=== PATIENT | female | born 1970 | race Caucasian/White ===

== ENCOUNTER → 2023-06-17 11:11 | Outpatient (BNVA) | payer MEDICARE, MEDICAID, SELFPAY | PROVIDERS: PCP Internal Medicine Hematology & Oncology; Visit Provider Physician Assistant Surgical ==

== ENCOUNTER 2023-07-09 08:01 | Outpatient (AMB) | payer MEDICARE, MEDICAID, SELFPAY ==
--- OUTSIDE RECORDS SUMMARY | 2023-07-09 08:02 | XMS_ITS | Continuity of Care Document ---
Author Name Unknown Organization [facility] Address [address] [place] [address] [place] [address]- Care Team Providers Care Nursery Manager Name Role Phone Not on Staff, PCP Primary Care Physician Unavail able Encounter [facility] Date(s): 06/06/23 - 07/06/[address] [address]- Allergies, Adverse Reactions, Alerts No Known Allergies Medications amphetamine-dextroamphetamine 15 mg oral capsule, extended release 1 capsule = 15 mg, By Mouth, Daily in AM, # 30 capsule, 0 Refills, Maintenance, 05/27/23 15:40:00 EDT, ER Capsule, [facility] #[id number], Partial fill upon patient request if the prescription is for a schedule II opioid drug., 1 capsule By Mouth... Start Date: 05/27/23 Status: Ordered gabapentin 100 mg oral capsule 300 mg, 3, capsule, By Mouth, 3 times a day, # 270 capsule, Refills 2, Tot. Refills 2, Maintenance,11/04/22 10:06:00 EST, Route to Pharmacy Electronically, [facility] #[id number], Partial fill upon patient request if the prescription is for a sc... Start Date: 11/04/22 Status: Ordered metFORMIN 500 mg oral tablet 1 each = 500 mg, By Mouth, Daily, # 30 capsule, 0 Refills, Maintenance, 07/29/22 15:47:00 EDT, Tablet, [facility] #[id number], Partial fill upon patient request if the prescription is for a schedule II opioid drug., 171, cm, 07/29/22 8:40:00 EDT,... Start Date: 07/29/22 Stop Date: 08/28/22 Status: Ordered Nicotine 2 mg gum = 2 mg, Chew, Every 15 minutes, PRN Other, cigarette craving, # 40 each, 0 Refills, Maintenance, 07/29/22 15:54:00 EDT, Gum, [facility] #[id number], Partial fill upon patient request if the prescription is for a schedule II opioid drug., 171, cm,... Start Date: 07/29/22 Status: Ordered nicotine 21 mg/24 hr transdermal film, extended release 1 patch, Topically, Daily, # 30 patch, 0 Refills, Maintenance, 07/29/22 15:53:00 EDT, Patch, [facility] #[id number], Partial fill upon patient request if the prescription is for a schedule II opioid drug., 1 patch Topically Daily, 171, cm, ... Start Date: 07/29/22 Status: Ordered PROzac 20 mg oral capsule 80 mg, 4, capsule, By Mouth, Daily, # 120 capsule, Refills 3, Tot. Refills 3, Maintenance, 11/04/2210:05:00 EST, Route to Pharmacy Electronically, [facility] #[id number], Partial fill upon patient request if the prescription is for a schedule II... Start Date: 11/04/22 Stop Date: 03/04/23 Status: Ordered Suboxone 2 mg-0.5 mg sublingual film 1 film, Sublingual, Daily, dissolve under the tongue Take with 8 mg strip for total of 10 mg daily,# 8 film, 0 Refills, Maintenance, 07/30/22 10:09:00 EDT, [facility] #[id number], Partialfill upon patient request if the prescription is... Start Date: 07/30/22 Status: Ordered Suboxone 8 mg-2 mg sublingual film 1 film, Sublingual, Daily, dissolve under the tongue, # 30 film, 0 Refills, Maintenance, 07/30/22 10:08:00 EDT, Film, [facility] #[id number], Partial fill upon patient request if the prescription is for a schedule II opioid drug., 1 film Sublingu... Start Date: 07/30/22 Status: Ordered traZODone 50 mg oral tablet 50 mg, 1, tablet, By Mouth, Daily at bedtime, PRN, may give additional dose x 1 if first dose ineffective, # 30 tablet, Refills 3, Tot. Refills 3, Maintenance, Sleep, 11/04/22 10:06:00 EST, Route to Pharmacy Electronically, [facility] #[id number]... Start Date: 11/04/22 Status: Ordered ZyPREXA 10 mg oral tablet 10 mg, 1, tablet, By Mouth, Daily at bedtime, # 30 tablet, Refills 2, Tot. Refills 2, Maintenance, 11/04/22 10:06:00 EST, Route to Pharmacy Electronically, [facility] #[id number], Partial fill upon patient request if the prescription is for a ze... Start Date: 11/04/22 Status: Ordered Problem List Condition Confirmation Course Effective Dates Status Health St [facility] Informant Severe obesity Confirmed Active Social History Social History Type Response Smoking Status Never (less than 100 in lifetime) entered on: 07/22/22 Sex Patient Care team information Care Team Personnel Name: Elle Zamora RN Position: [facility] RN Member Role: Primary Care Nurse Name: Tomeka Isabel [place] Position: [facility] RN Member Role: Primary Care Nurse Name: Josette Barnett RN Position: [facility] RN Member Role: Primary Care Nurse Name: Gaviota Garcia RN Position: [facility] ED RN W/OE and Tasks Member Role: Primary Care Nurse Name: Not on Staff, PCP Position: [facility] Physician (General Medicine) Member Role: PCP Care Team Related Persons Name: EVITA FULLER Address: [address] [address]
--- OUTSIDE RECORDS SUMMARY | 2023-07-09 08:02 | XMS_ITS | Continuity of Care Document ---
Author Name Unknown Organization [facility] Address [address] [place] [address]- Care Team Providers Care Review Scheduling Coordinator Name Role Phone Not on Staff, PCP Primary Care Physician Unavail able Encounter [facility] Date(s): 03/12/21 - 04/11/21 [facility] [address] [place], [place] [address] Allergies, Adverse Reactions, Alerts Substance Reaction Severity Status NKA Active
--- OUTSIDE RECORDS SUMMARY | 2023-07-09 08:02 | XMS_ITS | Continuity of Care Document ---
Author Name Unknown Organization [facility] Address [address] [place] [address]- Care Team Providers Care Executive Assistant To General Counsel Name Role Phone Not on Staff, PCP Primary Care Physician Unavail able Encounter [facility] Date(s): 04/24/23 - 05/24/[address] [address]- Allergies, Adverse Reactions, Alerts No Known Allergies Medications amphetamine-dextroamphetamine 15 mg oral capsule, extended release 1 capsule = 15 mg, By Mouth, Daily in AM, # 30 capsule, 0 Refills, Maintenance, 04/28/23 11:02:00 EDT, ER Capsule, [facility] #[id number], Partial fill upon patient request if the prescription is for a schedule II opioid drug., 1 capsule By Mouth... Start Date: 04/28/23 Status: Ordered gabapentin 100 mg oral capsule 300 mg, 3, capsule, By Mouth, 3 times a day, # 270 capsule, Refills 2, Tot. Refills 2, Maintenance,11/04/22 10:06:00 EST, Route to Pharmacy Electronically, [facility] #[id number], Partial fill upon patient request if the prescription is for a sc... Start Date: 11/04/22 Status: Ordered metFORMIN 500 mg oral tablet 1 each = 500 mg, By Mouth, Daily, # 30 capsule, 0 Refills, Maintenance, 07/29/22 15:47:00 EDT, Tablet, [facility] #[id number], Partial fill upon patient request if the prescription is for a schedule II opioid drug., 171, cm, 07/29/22 8:40:00 EDT,... Start Date: 07/29/22 Stop Date: 08/28/22 Status: Ordered Nicotine 2 mg gum = 2 mg, Chew, Every 15 minutes, PRN Other, cigarette craving, # 40 each, 0 Refills, Maintenance, 07/29/22 15:54:00 EDT, Gum, [facility] #[id number], Partial fill upon patient request if the prescription is for a schedule II opioid drug., 171, cm,... Start Date: 07/29/22 Status: Ordered nicotine 21 mg/24 hr transdermal film, extended release 1 patch, Topically, Daily, # 30 patch, 0 Refills, Maintenance, 07/29/22 15:53:00 EDT, Patch, [facility] #[id number], Partial fill upon patient request if the prescription is for a schedule II opioid drug., 1 patch Topically Daily, 171, cm, ... Start Date: 07/29/22 Status: Ordered PROzac 20 mg oral capsule 80 mg, 4, capsule, By Mouth, Daily, # 120 capsule, Refills 3, Tot. Refills 3, Maintenance, 11/04/2210:05:00 EST, Route to Pharmacy Electronically, [facility] #[id number], Partial fill upon patient request if the prescription is for a schedule II... Start Date: 11/04/22 Stop Date: 03/04/23 Status: Ordered Suboxone 2 mg-0.5 mg sublingual film 1 film, Sublingual, Daily, dissolve under the tongue Take with 8 mg strip for total of 10 mg daily,# 8 film, 0 Refills, Maintenance, 07/30/22 10:09:00 EDT, Film, [facility] #[id number], Partialfill upon patient request if the prescription is... Start Date: 07/30/22 Status: Ordered Suboxone 8 mg-2 mg sublingual film 1 film, Sublingual, Daily, dissolve under the tongue, # 30 film, 0 Refills, Maintenance, 07/30/22 10:08:00 EDT, Film, [facility] #[id number], Partial fill upon patient request if the [...] 11/04/22 10:06:00 EST, Route to Pharmacy Electronically, [facility] #[id number]... Start Date: 11/04/22 Status: Ordered ZyPREXA 10 mg oral tablet 10 mg, 1, tablet, By Mouth, Daily at bedtime, # 30 tablet, Refills 2, Tot. Refills 2, Maintenance, 11/04/22 10:06:00 EST, Route to Pharmacy Electronically, [facility] #[id number], Partial fill upon patient request if the prescription is for a ze... Start Date: 11/04/22 Status: Ordered Problem List Condition Confirmation Course Effective Dates Status Health [facility] Informant Obese class II Confirmed Active Social History Social History Type Response Smoking Status Never (less than 100 in lifetime) entered on: 07/22/22 Sex Patient Care team information Care Team Personnel Name: Elle Zamora RN Position: [facility] RN Member Role: Primary Care Nurse Name: Tomeka Isabel [place] Position: [facility] RN Member Role: Primary Care Nurse Name: Josette Barnett RN Position: [facility] RN Member Role: Primary Care Nurse Name: Gaviota Garcia RN Position: [facility] ED RN W/OE and Tasks Member Role: Primary Care Nurse Name: Not on Staff, PCP Position: [facility] Physician (General Medicine) Member Role: PCP Care Team Related Persons Name: EVITA FULLER Address: [place] [address]
--- OUTSIDE RECORDS SUMMARY | 2023-07-09 08:02 | XMS_ITS | Continuity of Care Document ---
Author Name Unknown Organization [facility] Address [address] [place] [address]- Care Team Providers Care Cream Separator Operator Name Role Phone Not on Staff, PCP Primary Care Physician Unavail able Encounter [facility] Date(s): 12/23/22 - 01/22/23 [facility] [address] [address]- Attending Physician: Sarthak Brambila Admitting Physician: Sarthak Brambila Referring Physician: Sarthak Brambila Allergies, Adverse Reactions, Alerts No Known Allergies Medications amphetamine-dextroamphetamine 15 mg oral capsule, extended release 1 capsule = 15 mg, By Mouth, Daily in AM, # 30 capsule, 0 Refills, Maintenance, 01/21/23 17:43:00 EST, ER Capsule, [facility]/pharmacy #[id number], Partial fill upon patient request if the prescription is for a schedule II opioid drug., 1 capsule By Mouth Daily in... Start Date: 01/21/23 Status: Ordered gabapentin 100 mg oral capsule 300 mg, 3, capsule, By Mouth, 3 times a day, # 270 capsule, Refills 2, Tot. Refills 2, Maintenance,11/04/22 10:06:00 EST, Route to Pharmacy Electronically, [facility] #[id number], Partial fill upon patient request if the prescription is for a sc... Start Date: 11/04/22 Status: Ordered hydrOXYzine pamoate 50 mg oral capsule = 50 mg, By Mouth, 2 times a day, PRN Anxiety, for 30 days, # 60 capsule, 2 Refills, Acute 02/02/2310:06:00 EST, 11/04/22 10:06:00 EST, Capsule, [facility] #[id number], Partial fill upon patient request if the prescription is for a schedule II o... Start Date: 11/04/22 Stop Date: 02/02/23 Status: Ordered metFORMIN 500 mg oral tablet 1 each = 500 mg, By Mouth, Daily, # 30 capsule, 0 Refills, Maintenance, 07/29/22 15:47:00 EDT, Tablet, [facility] #[id number], Partial fill upon patient request if the prescription is for a schedule II opioid drug., 171, cm, 07/29/22 8:40:00 EDT,... Start Date: 07/29/22 Stop Date: 08/28/22 Status: Ordered Nicotine 2 mg gum = 2 mg, Chew, Every 15 minutes, PRN Other, cigarette craving, # 40 each, 0 Refills, Maintenance, 07/29/22 15:54:00 EDT, Gum, [facility] #[id number], Partial fill upon patient request if the prescription is for a schedule II opioid drug., 171, cm,... Start Date: 07/29/22 Status: Ordered nicotine 21 mg/24 hr transdermal film, extended release 1 patch, Topically, Daily, # 30 patch, 0 Refills, Maintenance, 07/29/22 15:53:00 EDT, Patch, [facility] #[id number], Partial fill upon patient request if the prescription is for a schedule II opioid drug., 1 patch Topically Daily, 171, cm, ... Start Date: 07/29/22 Status: Ordered PROzac 20 mg oral capsule 80 mg, 4, capsule, By Mouth, Daily, # 120 capsule, Refills 3, Tot. Refills 3, Maintenance, 11/04/2210:05:00 EST, Route to Pharmacy Electronically, [facility] #[id number], Partial fill upon patient request if the prescription is for a schedule II... Start Date: 11/04/22 Stop Date: 03/04/23 Status: Ordered Suboxone 2 mg-0.5 mg sublingual film 1 film, Sublingual, Daily, dissolve under the tongue Take with 8 mg strip for total of 10 mg daily,# 8 film, 0 Refills, Maintenance, 07/30/22 10:09:00 EDT, Film, [facility] #[id number], Partialfill upon patient request if the prescription is... Start Date: 07/30/22 Status: Ordered Suboxone 8 mg-2 mg sublingual film 1 film, Sublingual, Daily, dissolve under the tongue, # 30 film, 0 Refills, Maintenance, 07/30/22 10:08:00 EDT, Film, [facility] #[id number], Partial fill upon patient request if the [...] 11/04/22 10:06:00 EST, Route to Pharmacy Electronically, [facility] #[id number]... Start Date: 11/04/22 Status: Ordered ZyPREXA 10 mg oral tablet 10 mg, 1, tablet, By Mouth, Daily at bedtime, # 30 tablet, Refills 2, Tot. Refills 2, Maintenance, 11/04/22 10:06:00 EST, Route to Pharmacy Electronically, [facility] #[id number], Partial fill upon patient request if the [...] Team Personnel Name: Elle Zamora RN Position: [facility] RN Member Role: Primary Care Nurse Name: Tmoeka Vitale Position: [facility] RN Member Role: Primary Care Nurse Name: Josette Barnett RN Position: [facility] RN Member Role: Primary Care Nurse Name: Gaviota Garcia RN Position: [facility] ED RN W/OE and Tasks Member Role: Primary Care Nurse Name: Not on Staff, PCP Position: [facility] Physician (General Medicine) Member Role: PCP Care Team Related Persons Name: EVITA FULLER Address: home [address] [place] [id number]
--- OUTSIDE RECORDS SUMMARY | 2023-07-09 08:02 | XMS_ITS | Continuity of Care Document ---
Author Name Unknown Organization [facility] Address [address] [place] [address]- Care Team Providers Care Stull Hewer Name Role Phone Not on Staff, PCP Primary Care Physician Unavail able Encounter [facility] Date(s): 03/07/21 - 04/06/21 [facility] [address] [place], [place] [address] Attending Physician: Admtr, Ar8 Admitting Physician: Admtr, Ar8 Referring Physician: Admtr, Ar8 Allergies, Adverse Reactions, Alerts Substance Reaction Severity Status NKA Active
--- OUTSIDE RECORDS SUMMARY | 2023-07-09 08:02 | XMS_ITS | Continuity of Care Document ---
Author Name Unknown Organization [facility] Address [address] [place] [address]- Care Team Providers Care Customs And Border Protection Officer Name Role Phone Not on Staff, PCP Primary Care Physician Unavail able Encounter [facility] Date(s): 07/29/22 - 08/30/[address] [address]- Attending Physician: Lencho Vo MD Admitting Physician: Lencho Vo MD Allergies, Adverse Reactions, Alerts No Known Allergies Medications amphetamine-dextroamphetamine 15 mg oral capsule, extended release 1 capsule = 15 mg, By Mouth, Daily in AM, # 30 capsule, 0 Refills, Maintenance, 08/27/22 13:39:00 EDT, ER Capsule, [facility] #[id number], Partial fill upon patient request if the prescription is for a schedule II opioid drug., 1 capsule By Mouth... Start Date: 08/27/22 Status: Ordered gabapentin 100 mg oral capsule 300 mg, 3, capsule, By Mouth, 3 times a day, # 270 capsule, Refills 2, Tot. Refills 2, Maintenance,08/27/22 13:39:00 EDT, Route to Pharmacy Electronically, [facility] #[id number], Partial fill upon patient request if the prescription is for a sc... Start Date: 08/27/22 Status: Ordered hydrOXYzine pamoate 50 mg oral capsule = 50 mg, By Mouth, 2 times a day, PRN Anxiety, for 30 days, # 60 capsule, 2 Refills, Acute 11/25/2213:39:00 EST, 08/27/22 13:39:00 EDT, Capsule, [facility] #[id number], Partial fill upon patient request if the prescription is for a schedule II o... Start Date: 08/27/22 Stop Date: 11/25/22 Status: Ordered metFORMIN 500 mg oral tablet 1 each = 500 mg, By Mouth, Daily, # 30 capsule, 0 Refills, Maintenance, 07/29/22 15:47:00 EDT, Tablet, [facility] #[id number], Partial fill upon patient request if the prescription is for a schedule II opioid drug., 171, cm, 07/29/22 8:40:00 EDT,... Start Date: 07/29/22 Stop Date: 08/28/22 Status: Ordered Nicotine 2 mg gum = 2 mg, Chew, Every 15 minutes, PRN Other, cigarette craving, # 40 each, 0 Refills, Maintenance, 07/29/22 15:54:00 EDT, Gum, [facility] #[id number], Partial fill upon patient request if the prescription is for a schedule II opioid drug., 171, cm,... Start Date: 07/29/22 Status: Ordered nicotine 21 mg/24 hr transdermal film, extended release 1 patch, Topically, Daily, # 30 patch, 0 Refills, Maintenance, 07/29/22 15:53:00 EDT, Patch, [facility] #[id number], Partial fill upon patient request if the prescription is for a schedule II opioid drug., 1 patch Topically Daily, 171, cm, ... Start Date: 07/29/22 Status: Ordered PROzac 20 mg oral capsule 60 mg, 3, capsule, By Mouth, Daily, Had appointment -07/10/2021 next appt - 02/05/2022 at 9am, # 90 capsule, Refills 3, Tot. Refills 3, Maintenance, 08/27/22 13:39:00 EDT, Route to Pharmacy Electronically, [facility] #[id number], Partial fill upon p... Start Date: 08/27/22 Stop Date: 12/25/22 Status: Ordered Suboxone 2 mg-0.5 mg sublingual film 1 film, Sublingual, Daily, dissolve under the tongue Take with 8 mg strip for total of 10 mg daily,# 8 film, 0 Refills, Maintenance, 07/30/22 10:09:00 EDT, Film, [facility] #[id number], Partialfill upon patient request if the prescription is... Start Date: 07/30/22 Status: Ordered Suboxone 8 mg-2 mg sublingual film 1 film, Sublingual, Daily, dissolve under the tongue, # 30 film, 0 Refills, Maintenance, 07/30/22 10:08:00 EDT, Film, [facility] #[id number], Partial fill upon patient request if the prescription is for a schedule II opioid drug., 1 film Sublingu... Start Date: 07/30/22 Status: Ordered traZODone 50 mg oral tablet 50 mg, 1, tablet, By Mouth, Daily at bedtime, PRN, may give additional dose x 1 if first dose ineffective, # 30 tablet, Refills 3, Tot. Refills 3, Maintenance, Sleep, 08/27/22 13:39:00 EDT, Route to Pharmacy Electronically, [facility] #[id number]... Start Date: 08/27/22 Status: Ordered ZyPREXA 10 mg oral tablet 10 mg, 1, tablet, By Mouth, Daily at bedtime, # 30 tablet, Refills 2, Tot. Refills 2, Maintenance, 08/27/22 13:39:00 EDT, Route to Pharmacy Electronically, [facility] #[id number], Partial fill upon patient request if the prescription is for a ze... Start Date: 08/27/22 Status: Ordered Problem List Condition Confirmation Course Effective Dates Status Health St [facility] Informant Obese class II Confirmed Active Vital Signs Most recent to oldest [Reference Range]: 1 Height 171 cm (07/31/22 11:46 AM) Weight 108.8 kg (07/31/22 11:46 AM) Social History Social History Type Response Smoking Status Never (less than 100 in lifetime) entered on: 07/22/22 Sex Patient Care team information Personnel Name: Not on Staff, PCP
--- OUTSIDE RECORDS SUMMARY | 2023-07-09 08:02 | XMS_ITS | Continuity of Care Document ---
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 Role Phone Not on Staff, PCP Primary Care Physician Unavail able Encounter [facility] Date(s): 03/11/21 - 03/11/[address] [address]- Discharge Disposition: A-D/C Walkout Attending Physician: Not on Staff, Attending MD Admitting Physician: Not on Staff, Admitting MD Referring Physician: Not on Staff, Referring MD Allergies, Adverse Reactions, Alerts Substance Reaction Severity Status NKA Active Medications No Known Medications Vital Signs Most recent to oldest [Reference Range]: 1 2 Oxygen Saturation [94-100 %] 100 % (03/11/21 8:53 AM) 97 % (03/11/21 8:46 AM) Pulse Rate [55-90 bpm] 74 bpm (03/11/21 8:53 AM) 72 bpm (03/11/21 8:46 AM) Blood Pressure [90-138/55-84 mm Hg] 118/ 74mm Hg (03/11/21 8:53 AM) Respiratory Rate [16-30 br/min] 16 br/mi n (03/11/21 8:53 AM) 16 br/min (03/11/21 8:46 AM) Temperature [96.8-100.4 DegF] 98.2 DegF (03/11/21 8:53 AM) Temperature Route Oral (03/11/21 8:53 AM)
--- OUTSIDE RECORDS SUMMARY | 2023-07-09 08:02 | XMS_ITS | Continuity of Care Document ---
Author Name Unknown Organization [facility] Address [address] [place] [id number]- Care Team Providers Care Designer Writer Name Role Phone Not on Staff, PCP Primary Care Physician Unavail able Encounter [facility] Date(s): 09/24/22 - 01/22/23 [facility] [address] [address]- Attending Physician: Lencho Vo MD Admitting Physician: Lencho Vo MD Allergies, Adverse Reactions, Alerts No Known Allergies Medications amphetamine-dextroamphetamine 15 mg oral capsule, extended release 1 capsule = 15 mg, By Mouth, Daily in AM, # 30 capsule, 0 Refills, Maintenance, 01/21/23 17:43:00 EST, ER Capsule, [facility]/pharmacy #[id number], Partial fill upon patient request if the prescription is for a schedule II opioid drug., 1 capsule By Mouth Daily in... Start Date: 01/21/23 Status: Ordered gabapentin 100 mg oral capsule 300 mg, 3, capsule, By Mouth, 3 times a day, # 270 capsule, Refills 2, Tot. Refills 2, Maintenance,11/04/22 10:06:00 EST, Route to Pharmacy Electronically, [facility] #[id number], Partial fill upon patient request if the prescription is for a sc... Start Date: 11/04/22 Status: Ordered hydrOXYzine pamoate 50 mg oral capsule = 50 mg, By Mouth, 2 times a day, PRN Anxiety, for 30 days, # 60 capsule, 2 Refills, Acute 02/02/2310:06:00 EST, 11/04/22 10:06:00 EST, Capsule, [facility] #[id number], Partial fill upon patient request if the prescription is for a schedule II o... Start Date: 11/04/22 Stop Date: 02/02/23 Status: Ordered metFORMIN 500 mg oral tablet 1 each = 500 mg, By Mouth, Daily, # 30 capsule, 0 Refills, Maintenance, 07/29/22 15:47:00 EDT, Tablet, [facility] #[id number], Partial fill upon patient request if the prescription is for a schedule II opioid drug., 171, cm, 07/29/22 8:40:00 EDT,... Start Date: 07/29/22 Stop Date: 08/28/22 Status: Ordered Nicotine 2 mg gum = 2 mg, Chew, Every 15 minutes, PRN Other, cigarette craving, # 40 each, 0 Refills, Maintenance, 07/29/22 15:54:00 EDT, Gum, [facility] #[id number], Partial fill upon patient request if the prescription is for a schedule II opioid drug., 171, cm,... Start Date: 07/29/22 Status: Ordered nicotine 21 mg/24 hr transdermal film, extended release 1 patch, Topically, Daily, # 30 patch, 0 Refills, Maintenance, 07/29/22 15:53:00 EDT, Patch, [facility] #[id number], Partial fill upon patient request if the prescription is for a schedule II opioid drug., 1 patch Topically Daily, 171, cm, ... Start Date: 07/29/22 Status: Ordered PROzac 20 mg oral capsule 80 mg, 4, capsule, By Mouth, Daily, # 120 capsule, Refills 3, Tot. Refills 3, Maintenance, 11/04/2210:05:00 EST, Route to Pharmacy Electronically, [facility] #[id number], Partial fill upon patient request if the prescription is for a schedule II... Start Date: 11/04/22 Stop Date: 03/04/23 Status: Ordered Suboxone 2 mg-0.5 mg sublingual film 1 film, Sublingual, Daily, dissolve under the tongue Take with 8 mg strip for total of 10 mg daily,# 8 film, 0 Refills, Maintenance, 07/30/22 10:09:00 EDT, Film, [facility] #[id number], Partialfill upon patient request if the prescription is... Start Date: 07/30/22 Status: Ordered Suboxone 8 mg-2 mg sublingual film 1 film, Sublingual, Daily, dissolve under the tongue, # 30 film, 0 Refills, Maintenance, 07/30/22 10:08:00 EDT, Film, [facility] #[id number], Partial fill upon patient request if the [...] 11/04/22 10:06:00 EST, Route to Pharmacy Electronically, [facility] #[id number]... Start Date: 11/04/22 Status: Ordered ZyPREXA 10 mg oral tablet 10 mg, 1, tablet, By Mouth, Daily at bedtime, # 30 tablet, Refills 2, Tot. Refills 2, Maintenance, 11/04/22 10:06:00 EST, Route to Pharmacy Electronically, [facility] #[id number], Partial fill upon patient request if the [...] Team Personnel Name: Elle Zamora RN Position: [facility] RN Member Role: Primary Care Nurse Name: Tomeka Vitale Position: [facility] RN Member Role: Primary Care Nurse Name: Josette Barnett RN Position: [facility] RN Member Role: Primary Care Nurse Name: Gaviota Garcia RN Position: [facility] ED RN W/OE and Tasks Member Role: Primary Care Nurse Name: Not on Staff, PCP Position: [facility] Physician (General Medicine) Member Role: PCP Care Team Related Persons Name: EVITA FULLER Address: [address] [address]
--- OUTSIDE RECORDS SUMMARY | 2023-07-09 08:02 | XMS_ITS | Continuity of Care Document ---
Author Name Unknown Organization [facility] Address [address] [place] [address] [place] [address]- Care Team Providers Care Dental Assistant Instructor Name Role Phone Not on Staff, PCP Primary Care Physician Unavail able Encounter [facility] [facility] Date(s): 06/05/23 - 07/05/[address] [address]- Allergies, Adverse Reactions, Alerts No Known Allergies Medications amphetamine-dextroamphetamine 15 mg oral capsule, extended release 1 capsule = 15 mg, By Mouth, Daily in AM, # 30 capsule, 0 Refills, Maintenance, 05/27/23 15:40:00 EDT, ER Capsule, [facility] #[id number], Partial fill upon patient request if the prescription is for a schedule II opioid drug., 1 capsule By Mouth... Start Date: 05/27/23 Status: Ordered gabapentin 100 mg oral capsule 300 mg, 3, capsule, By Mouth, 3 times a day, # 270 capsule, Refills 2, Tot. Refills 2, Maintenance,11/04/22 10:06:00 EST, Route to Pharmacy Electronically, [facility] #[id number], Partial fill upon patient request if the prescription is for a sc... Start Date: 11/04/22 Status: Ordered metFORMIN 500 mg oral tablet 1 each = 500 mg, By Mouth, Daily, # 30 capsule, 0 Refills, Maintenance, 07/29/22 15:47:00 EDT, Tablet, [facility] #[id number], Partial fill upon patient request if the prescription is for a schedule II opioid drug., 171, cm, 07/29/22 8:40:00 EDT,... Start Date: 07/29/22 Stop Date: 08/28/22 Status: Ordered Nicotine 2 mg gum = 2 mg, Chew, Every 15 minutes, PRN Other, cigarette craving, # 40 each, 0 Refills, Maintenance, 07/29/22 15:54:00 EDT, Gum, [facility] #[id number], Partial fill upon patient request if the prescription is for a schedule II opioid drug., 171, cm,... Start Date: 07/29/22 Status: Ordered nicotine 21 mg/24 hr transdermal film, extended release 1 patch, Topically, Daily, # 30 patch, 0 Refills, Maintenance, 07/29/22 15:53:00 EDT, Patch, [facility] #[id number], Partial fill upon patient request if the prescription is for a schedule II opioid drug., 1 patch Topically Daily, 171, cm, ... Start Date: 07/29/22 Status: Ordered PROzac 20 mg oral capsule 80 mg, 4, capsule, By Mouth, Daily, # 120 capsule, Refills 3, Tot. Refills 3, Maintenance, 11/04/2210:05:00 EST, Route to Pharmacy Electronically, [facility] #[id number], Partial fill upon patient request if the prescription is for a schedule II... Start Date: 11/04/22 Stop Date: 03/04/23 Status: Ordered Suboxone 2 mg-0.5 mg sublingual film 1 film, Sublingual, Daily, dissolve under the tongue Take with 8 mg strip for total of 10 mg daily,# 8 film, 0 Refills, Maintenance, 07/30/22 10:09:00 EDT, [facility] #[id number], Partialfill upon patient request if the prescription is... Start Date: 07/30/22 Status: Ordered Suboxone 8 mg-2 mg sublingual film 1 film, Sublingual, Daily, dissolve under the tongue, # 30 film, 0 Refills, Maintenance, 07/30/22 10:08:00 EDT, Film, [facility] #[id number], Partial fill upon patient request if the [...] 11/04/22 10:06:00 EST, Route to Pharmacy Electronically, [facility] #[id number]... Start Date: 11/04/22 Status: Ordered ZyPREXA 10 mg oral tablet 10 mg, 1, tablet, By Mouth, Daily at bedtime, # 30 tablet, Refills 2, Tot. Refills 2, Maintenance, 11/04/22 10:06:00 EST, Route to Pharmacy Electronically, [facility] #[id number], Partial fill upon patient request if the prescription is for a ze... Start Date: 11/04/22 Status: Ordered Problem List Condition Confirmation Course Effective Dates Status Health St [facility] Informant Severe obesity Confirmed Active Social History Social History Type Response Smoking Status Never (less than 100 in lifetime) entered on: 07/22/22 Sex Patient Care team information Care Team Personnel Name: Elle Zamora RN Position: [facility] RN Member Role: Primary Care Nurse Name: Tomeka Isabel [place] Position: [facility] RN Member Role: Primary Care Nurse Name: Josette Barnett RN Position: [facility] RN Member Role: Primary Care Nurse Name: Gaviota Garcia RN Position: [facility] ED RN W/OE and Tasks Member Role: Primary Care Nurse Name: Not on Staff, PCP Position: [facility] Physician (General Medicine) Member Role: PCP Care Team Related Persons Name: EVITA FULLER Address: [address] [address]
--- NOTE | 2023-07-09 08:10 | A.OFFVIS_ITS ---
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 HPI Details Start time: 8.00am, End time: 8.40am ?I spent 35 minutes speaking with the patient on the phone plus an additional 5 minutes reviewing and updating records for a total of 40 minutes HPI Comments History of Present Illness Details Previous weight loss efforts: NutrisyAundrea welch Wakes up: 7.30am, Sleeps: 10pm Breakfast:skips Lunch: 1pm (fast food) noodles, chicken Dinner: 5pm (chicken, mac and cheese) Snacks: 3-4pm (pretzels, cookies), 7-8pm (same) Exercise: none Fluids: Coffee/tea: none, soda: regular Pepsi (4 cans per day), juice: none, ETOH: none PFSH Medical History (Updated 07/09/23 @ 08:11 by Abraham Bond MD) Morbid obesity Obstructive sleep apnea on CPAP Surgical History (Updated 06/17/23 @ 11:34 by TINA Marques) No pertinent past surgical history Family History (Updated 06/17/23 @ 11:35 by TINA Marques) Mother No problems noted. Father Parkinson disease Sister No problems noted. Sister No problems noted. Brother No problems noted. Brother No problems noted. Daughter No problems noted. Daughter No problems noted. Daughter No problems noted. Son No problems noted. Son No problems noted. Social History (Updated 06/17/23 @ 11:34 by TINA Marques) Alcohol intake: never Patient Tobacco Use Status: Never used Tobacco Assessment & Plan Assessment & Plan (1) Morbid obesity: Code(s): E66.01 - Morbid (severe) obesity due to excess calories Plan: 1.? Plan for lap sleeve gastrectomy. If diaphragmatic or ventral hernias are present at time of surgery, these will be repaired laparoscopically as well. Risks and complications were discussed in detail including possible conversion to an open procedure, anastomotic leak, bleeding requiring transfusion, small bowel obstruction, , DVT and pulmonary embolism, cardiac, or pulmonary complications, as retirement complications such as anastomotic ulcer, insuffi cient weight loss and vitamin deficiencies. I emphasized the importance of close follow-up, adherence to instructions and good communication. 2. Nutritional counseling. Start with 2 Pure protein (buy at [employer], [employer]Pulse, [employer], [employer]) shakes (1/2 HALF scoop EACH in 8oz low fat unsweetened almond milk each) at 8am-10am and 11am-1pm, 1 protein bar (Zone Perfect protein bars, buy at [employer], ?[employer], [employer], or [employer]) at 2pm-4pm, dinner at 5pm (10 forks of protein and 10 forks of salad/vegetables) and one more protein bar after dinner at 7pm- 9pm. Meal to include lean meat (beef, fish, pork, turkey, chicken), or indian yogurt, or egg whites, or beans with a salad with olive oil and fruits (berries, pears, apples, kiwi). Avoid salt, breads, potatoes, rice, pasta, desserts. 3. Each shake would be drunk slowly, like coffee in a period of 2 hours. 4. Cut each bar in 4 pieces and eat each piece in 30min ?to make each bar last 2 hours. 5. I emphasized the importance of measuring accurately the food portion and measure it when serving the food in plate 6. The meal portions include 10 full-size forks of meat and 10 full-size forks of salad. You always eat the meat portion but you can replace up to 5 forks for salad/vegetables with rice, potatoes or pasta, or a fruit ?if you like. The less you do it the better weight loss will be. 7. One full-size fork is what it can be scooped on the fork without falling aside and not what can be bit with the fork. Use regular forks like those you find in a typical restaurant. 8.? Please send me weight measurements as soon as possible and then once a week. Always include your diet and exercise plan. 9. Start walking outside daily, tracking calories with a goal of 300 calories per day, daily. Goal is to burn 2000 calories per week on active walking. 10. Alternatively purchase a stationary bike, elliptical or treadmill at home that can track calories. Let me know if you do so I can give you an exercise plan. 11.?Goal is to lose at least 1.5-2lbs per week 12. Goal to lose 10% of your weight before surgery, which is about 26lbs. Ultimate weight goal: 243lbs before surgery 13. Please follow the diet plan exactly without any change. If you don't like something about the plan or you feel hungry you need to communicate with me so I can help you revise the plan. You should not change the plan yourself. (2) Obstructive sleep apnea on CPAP: Code(s): G47.33 - Obstructive sleep apnea (adult) (pediatric) Orders: Orders Vitamin B12 and Folate Today E66.01 - Morbid (severe) obesity due to excess calories, G47.33 - Obstructive sleep apnea (adult) (pediatric) Comprehensive Met. Panel Today E66.01 - Morbid (severe) obesity due to excess calories, G47.33 - Obstructive sleep apnea (adult) (pediatric) C Reactive Protein Today E66.01 - Morbid (severe) obesity due to excess calories, G47.33 - Obstructive sleep apnea (adult) (pediatric) Ferritin Today E66.01 - Morbid (severe) obesity due to excess calories, G47.33 - Obstructive sleep apnea (adult) (pediatric) Hemoglobin A1c Today E66.01 - Morbid (severe) obesity due to excess calories, G47.33 - Obstructive sleep apnea (adult) (pediatric) Insulin Today E66.01 - Morbid (severe) obesity due to excess calories, G47.33 - Obstructive sleep apnea (adult) (pediatric) IRON PROFILE Today E66.01 - Morbid (severe) obesity due to excess calories, G47.33 - Obstructive sleep apnea (adult) (pediatric) Lipid Panel Today E66.01 - Morbid (severe) obesity due to excess calories, G47.33 - Obstructive sleep apnea (adult) (pediatric) PTHI Today E66.01 - Morbid (severe) obesity due to excess calories, G47.33 - Obstructive sleep apnea (adult) (pediatric) TSH reflex Free T4 Today E66.01 - Morbid (severe) obesity due to excess calories, G47.33 - Obstructive sleep apnea (adult) (pediatric) Vitamin A Today E66.01 - Morbid (severe) obesity due to excess calories, G47.33 - Obstructive sleep apnea (adult) (pediatric) Vitamin B1 Today E66.01 - Morbid (severe) obesity due to excess calories, G47.33 - Obstructive sleep apnea (adult) (pediatric) Vitamin D 25-OH Total Today E66.01 - Morbid (severe) obesity due to excess calories, G47.33 - Obstructive sleep apnea (adult) (pediatric) Zinc Today E66.01 - Morbid (severe) obesity due to excess calories, G47.33 - Obstructive sleep apnea (adult) (pediatric) ECG 12 lead EKG Today E66.01 - Morbid (severe) obesity due to excess calories, G47.33 - Obstructive sleep apnea (adult) (pediatric) FL upper GI w air Today E66.01 - Morbid (severe) obesity due to excess calories, G47.33 - Obstructive sleep apnea (adult) (pediatric) Complete Blood Count Auto Diff Today E66.01 - Morbid (severe) obesity due to excess calories, G47.33 - Obstructive sleep apnea (adult) (pediatric) H Pylori Breath Test Today E66.01 - Morbid (severe) obesity due to excess calories, G47.33 - Obstructive sleep apnea (adult) (pediatric) US abdomen comp w elastography Today E66.01 - Morbid (severe) obesity due to excess calories, G47.33 - Obstructive sleep apnea (adult) (pediatric) XR chest 2V Today E66.01 - Morbid (severe) obesity due to excess calories, G47.33 - Obstructive sleep apnea (adult) (pediatric) Referrals Behavioral Health Referral E66.01 - Morbid (severe) obesity due to excess calories, G47.33 - Obstructive sleep apnea (adult) (pediatric) Nutrition/Dietitian Referral E66.01 - Morbid (severe) obesity due to excess calories, G47.33 - Obstructive sleep apnea (adult) (pediatric) Telehealth Telehealth Location of provider rendering services: practice address Location of patient: address on file Patient Identification confirmed using: Name, : Yes Telehealth method: voice only Patient verbally consented to treatment: Yes Patient verbally consented to billing insurance company: Yes Patient informed of any privacy concerns related to visit: Yes Minutes spent on Phone/Video with Pt.: 40 Coding Level of Care Code Tele New Pt Level 3 (90712) Diagnoses Morbid obesity E66.01 Obstructive sleep apnea on CPAP G47.33 Time Spent (min) 40
[2023-07-09 08:16] VITALS: BMI 40.9
== END 2023-07-09 08:40 | disposition home or self-care (01) ==
LOC: HO.HBS 08:01
PROVIDERS: PCP Internal Medicine Hematology & Oncology; Visit Provider Surgery
DX: E66.01 Morbid (severe) obesity due to excess calories (principal); Z68.41 Body mass index [BMI] 40.0-44.9, adult; G47.33 Obstructive sleep apnea (adult) (pediatric)
CPT/HCPCS: 99443

== ENCOUNTER → 2023-07-09 08:01 | Outpatient (BNVA) | payer MEDICARE, MEDICAID, SELFPAY | PROVIDERS: PCP Internal Medicine Hematology & Oncology; Visit Provider Surgery ==

== ENCOUNTER → 2023-08-25 13:15 | Outpatient (BNVA) | payer MEDICARE, MEDICAID, SELFPAY | PROVIDERS: PCP Internal Medicine Hematology & Oncology; Visit Provider Dietitian, Registered | DX: E66.9 Obesity, unspecified (principal) | CPT/HCPCS: 97802 ==